=== PATIENT | female | born 2000 | race Two or more races ===

== ENCOUNTER 2023-05-14 22:43 | Emergency (ER) | payer BC | END 2023-05-14 23:30 | disposition left against medical advice (07) | LOC: ER 22:45 | DX: T78.49XA Other allergy, initial encounter (principal); X58.XXXA Exposure to other specified factors, initial encounter; Z53.21 Procedure and treatment not carried out due to patient leaving prior to being seen by health care provider ==

== ENCOUNTER 2025-08-31 22:33 | Emergency (ER) | payer BC ==
[~2025-08-31] VITALS: Ht 165.1 cm; Wt 100.0 kg
[2025-08-31 22:37] VITALS: TEMP 98
[2025-08-31 22:55] VITALS: O2SAT 98
[2025-08-31] MEDS: methylPREDNISolone SOD SUCC 125 MG/2 ML VL IV ONE (23:12)
[2025-08-31] MEDS: FAMOTIDINE (10MG/ML) 2ML VL IV ONE (23:12)
[2025-08-31 23:20] LABS: Hematocrit 48.6 % (36.0-46.0); Hemoglobin 16.4 g/dL (12.2-16.2); Mean Corpuscular Hemoglobin 30.5 pg (28.0-32.0); Mean Corpuscular Volume 90.3 fL (80.0-100.0); Nucleated Red Blood Cells % 0.1 %
[2025-08-31 23:31] LABS: Chloride 104 mmol/L (98-107); Potassium 4.8 mmol/L (3.5-5.1); Sodium 141 mmol/L (136-145)
[2025-08-31 23:32] LABS: Anion Gap 8 (5-15); Calcium 9.6 mg/dL (8.7-10.4); Carbon Dioxide 29 mmol/L (20-31)
[2025-08-31 23:37] LABS: BUN/Creatinine Ratio 10.3 (10.0-20.0); Blood Urea Nitrogen 11 mg/dL (9-23); Lipase 35 U/L (12-53)
[2025-08-31 23:44] LABS: Glucose 167 mg/dL (74-106)
--- NOTE | 2025-09-01 00:02 | ED.PDOC ---
History of Present Illness HPI Comments 25-year-old, obese female presents for allergic reaction. Significant allergen history to shrimp, milk, and wheat byproducts. Patient reports eating a 'Chicken-bake' from [employer] and developing a sudden sudden allergic reaction. She reports developing a generalized, red hives, first, then going home and taking a non-drowsy allergy medication pill. Patient then states on developing generalized itchiness, weakness, nausea, vomiting, and diarrhea associated with dizziness before family found her and called EMS. Since then, patient reports all symptoms resolved. Patient has no current epi-pen and comments on having mild hives with her allergy flare-ups in the past and treating it with Benadryl only. Denies any throat swelling, shortness of breath, or further acute symptoms. 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 History Social History Smoker: Non-Smoker Alcohol: Denies ETOH Use Drugs: Denies Drug Use Lives In: Home All Other Systems: Reviewed and Negative (Comprehensive review of systems are negative unless otherwise stated in HPI) Physical Exam General Appearance: No Apparent Distress, Obese HEENT: Head (Patient has urticaria, otherwise, normal HEENT inspection), Normal ENT Inspection, Pharynx Normal, TMs Normal Neck: Full Range of Motion, Non-Tender, Normal, Normal Inspection Respiratory: Chest Non-Tender, Lungs Clear, No Accessory Muscle Use, No Respiratory Distress, Normal Breath Sounds Cardiovascular: No Edema, No JVD, No Murmur, No Gallop, Normal Peripheral Pulses, Regular Rate/Rhythm Breast Exam: Deferred Gastrointestinal: No Organomegaly, Non Tender, No Pulsatile Mass, Normal Bowel Sounds, Soft Genitalia: Deferred Pelvic: Deferred Rectal: Deferred Extremities: No calf tenderness, Normal capillary refill, Normal inspection, Normal range of motion, Non-tender, No pedal edema Musculoskeletal : Apperance: Normal Neurologic: Alert, operating engineer II-XII nml as Tested, No Motor Deficits, Normal Affect, Normal Mood, No Sensory Deficits Cerebellar Function: Normal Reflexes: Normal Skin: Dry, Normal Color, Rash (Patient urticaria), Warm Lymphatic: No Adenopathy Was a procedure done? Was a procedure done?: No Differential Dx Considerations may include: Anaphylaxis, shock, angioedema, urticaria, among others X-Ray, Labs, Meds, VS Vital Signs Date Time Temp Pulse Resp B/P (MAP) Pulse Ox O2 Delivery O2 Flow Rate FiO2 09/01/25 00:00 72 16 100/59 (73) 96 08/31/25 23:00 97/53 (68) 08/31/25 22:55 98 Room Air* 0 21 08/31/25 22:51 83 14 105/39 (61) 98 08/31/25 22:37 98.0 100 16 117/57 99 98.0 Lab Test 08/31/25 23:09 Range/Units White Blood Count 14.4 H 4.4-10.8 10^3/uL Red Blood Count 5.38 H 4.0-5.20 10^6/uL Hemoglobin 16.4 H 12.2-16.2 g/dL Hematocrit 48.6 H 36.0-46.0 % Mean Corpuscular Volume 90.3 80.0-100.0 fL Mean Corpuscular Hemoglobin 30.5 28.0-32.0 pg Mean Corpuscular Hemoglobin Concent 33.8 32.0-36.0 g/dL Red Cell Distribution Width 14.3 11.8-14.3 % Platelet Count 309 140-450 10^3/uL Mean Platelet Volume 7.6 6.9-10.8 fL Neutrophils (%) (Auto) 79.9 37.0-80.0 % Lymphocytes (%) (Auto) 15.1 10.0-50.0 % Monocytes (%) (Auto) 3.7 0.0-12.0 % Eosinophils (%) (Auto) 1.0 0.0-7.0 % Basophils (%) (Auto) 0.3 0.0-2.0 % Neutrophils # (Auto) 11.5 H 1.6-8.6 10 ^3/uL Lymphocytes # (Auto) 2.2 0.4-5.4 10 ^3/uL Monocytes # (Auto) 0.5 0-1.3 10 ^3/uL Eosinophils # (Auto) 0.1 0-0.8 10 ^3/uL Basophils # (Auto) 0 0-0.2 10 ^3/uL Nucleated Red Blood Cells 0.1 % Sodium Level 141 136-145 mmol/L Potassium Level 4.8 3.5-5.1 mmol/L Chloride Level 104 98-107 mmol/L Carbon Dioxide Level 29 20-31 mmol/L Anion Gap 8 5-15 Blood Urea Nitrogen 11 9-23 mg/dL Creatinine 1.07 H 0.550-1.02 mg/dL Glomerular Filtration Rate Calc 73 >90 mL/min BUN/Creatinine Ratio 10.3 10.0-20.0 Serum Glucose 167 H 74-106 mg/dL Calcium Level 9.6 8.7-10.4 mg/dL B-Type Natriuretic Peptide 7.13 0-100 pg/mL Lipase 35 12-53 U/L Current Medications Medications (Trade) Dose Ordered Sig/Gladys Route Start Time Stop Time Status Last Admin Famotidine (Pepcid Injection) 20 mg ONCE ONCE IV 08/31/25 23:00 08/31/25 23:01 DC 08/31/25 23:12 Methylprednisolone Sodium Succinate (Solu Medrol) 125 mg ONCE ONCE IV 08/31/25 23:00 08/31/25 23:01 DC 08/31/25 23:12 X-Ray, Labs, Meds, VS Comment Patient presenting with allergic reaction concerning for anaphylaxis, however symptoms now fully resolved. Vital signs stable and exam unremarkable besides mild facial urticaria. Patient with no signs of anaphylaxis at this time. Patient reporting dizziness previously, however now fully resolved. NIHSS 0 on arrival Lab work (CBC, BMP) to evaluate for evidence of severe anemia, electrolyte abnormality including hypokalemia, hyperkalemia, hypernatremia, hyponatremia, hyperglycemia, hypoglycemia, etc. EKG to evaluate for evidence of arrhythmia, ACS, AMI Will treat with IV Solu-Medrol and Pepcid as patient already took Benadryl at home Re-evaluate Social determinant surveillance affecting care: Social determinants of health that will affect the patient's care: Poor health literacy (additional time provided an explanation) Poor access to outpatient care/followup (provided outpatient resources) Time of 1ST Reevaluation: 00:30 Reevaluation 1ST: Improved Patient Education/Counseling: Diagnosis, Treatment, Need For Follow Up Family Education/Counseling: Diagnosis, Treatment, Need For Follow Up SEPSIS Sepsis Screen Date sepsis recognized/suspect: Aug 31, 2025 Time Sepsis recognized/suspect: 2236 Recent Procedure: No On Antibiotic Therapy: No Respiratory Rate >20: No Heart Rate >90: No Temp<36 C (96.8 F) or >38.3 C: No SBP <90 or MAP <65 mmHG: No New Acute Mental Status Change: No Is the patient on CPAP, BIPAP,: No Physician Orders Urinalysis (08/31/25 22:59) Test, Urine (08/31/25 22:59) Electrocardigram (08/31/25 22:59) Electrocardigram (08/31/25 23:59) Electrocardigram (09/01/25 01:59) Vital Signs Date Time Temp Pulse Resp B/P (MAP) Pulse Ox O2 Delivery O2 Flow Rate FiO2 09/01/25 00:00 72 16 100/59 (73) 96 08/31/25 23:00 97/53 (68) 08/31/25 22:55 98 Room Air* 0 21 08/31/25 22:51 83 14 105/39 (61) 98 08/31/25 22:37 98.0 100 16 117/57 99 98.0 Laboratory Tests Test 08/31/25 23:09 White Blood Count 14.4 10^3/uL (4.4-10.8) H Medications Medications Dose Ordered Sig/Gladys Route Start Time Stop Time Status Last Admin Dose Admin Famotidine 20 mg ONCE ONCE IV 08/31/25 23:00 08/31/25 23:01 DC 08/31/25 23:12 Methylprednisolone Sodium Succinate 125 mg ONCE ONCE IV 08/31/25 23:00 08/31/25 23:01 DC 08/31/25 23:12 Departure 1 Departure Time of Disposition: 01:09 (On reassessment, patient's symptoms now fully resolved. Patient requesting go home at this time. Labs unremarkable and vital signs stable. Hives fully resolved while in the ED. Will discharge with a course of prednisone and EpiPen and discussed with patient outpatient allergy follow up. Given strict return precautions and PMD follow-up.) Impression: Primary Impression: Allergic reaction Qualified Codes: T78.40XA - Allergy, unspecified, initial encounter Additional Impressions: Acute nausea with nonbilious vomiting Dizziness Disposition: HOME / SELF CARE / HOMELESS Condition: Stable e-Prescriptions Prednisone (Prednisone) 20 Mg Tab 40 MG PO DAILY for 5 Days, #5 TAB Prov: AXEL ARGUELLO MD 09/01/25 Discharged With: Relative Critical Care Note Critical Care Time?: Yes (35 min-critical care time only) Critical care comment: Allergic reaction Stability Stability form required: No Heart Score Heart Score: Heart Score Response (Comments) Value History N/A 0 EKG N/A 0 Age N/A 0 Risk Factors N/A 0 Troponin N/A 0 Total 0 I personally scribed for AXEL ARGUELLO MD ([email or web address]) on 09/01/25 at 00:02. Electronically submitted by Velasquez Mcclain ([email or web address]). AXEL ARGUELLO MD Sep 01, 2025 00:02
[2025-09-01] MEDS ORDERED: PRED20TA2 PO (01:12)
[2025-09-01 01:18] VITALS: BP 105/60; PULSE 67; RESP 19; O2SAT 97
== END 2025-09-01 01:28 | disposition home or self-care (01) ==
LOC: ER 22:33 → EDBD 22:33 → ER 09-01 01:28
DX: L50.0 Allergic urticaria (principal); E66.9 Obesity, unspecified; R11.2 Nausea with vomiting, unspecified; R42 Dizziness and giddiness; Z68.36 Body mass index [BMI] 36.0-36.9, adult
CPT/HCPCS: 36415; 80048; 83690; 83880; 85025; 96374; 96375; 99285; J2919; J3490

== ENCOUNTER 2025-09-02 14:55 | Emergency (ER) | payer BC ==
[~2025-09-02 14:55] MED LIST: PRED20TA2 PO
== END 2025-09-02 15:05 | disposition left against medical advice (07) ==
LOC: ER 14:55
DX: T78.40XA Allergy, unspecified, initial encounter (principal); Z53.21 Procedure and treatment not carried out due to patient leaving prior to being seen by health care provider; X58.XXXA Exposure to other specified factors, initial encounter